=== PATIENT | male | born 1975 | race Caucasian/White ===

== ENCOUNTER 2024-03-18 09:26 | Emergency (ER) | payer OTHER, SELFPAY ==
--- NOTE | ~2024-03-18 | XR_ITS ---
XR foot RT min 3V Ordering provider: Antony Guadarrama APRN History: . FALL OFF LADDER. RT HEEL PAIN . Comparison: None. FINDINGS: BONES: No acute fracture or dislocation. Calcaneal spur. JOINT SPACES: Normal. No tarsal coalition. SOFT TISSUES: Normal. IMPRESSION: No acute osseous abnormality of the right foot. Reviewed, dictated and finalized at location A.
--- NOTE | ~2024-03-18 | XR_ITS ---
XR ankle RT min 3V Ordering provider: Antony Guadarrama APRN History: . right ankle pain s/p fall OFF LADDER LAST NIGHT . Comparison: None. FINDINGS: BONES: No acute fracture or dislocation. Small well-corticated bone is seen adjacent to the medial ma lleolus most likely old fracture or nonhealed apophysis. JOINT SPACES: Normal. SOFT TISSUES: Normal. IMPRESSION: No definite acute osseous abnormality of the right ankle. Small well-corticated bone is seen adjacent to the medial malleolus most likely old fracture or nonh ealed apophysis. Reviewed, dictated and finalized at location A. IMPRESSION: No definite acute osseous abnormality of the right ankle. Small well-corticated bone is seen adjacent to the medial malleolus most likel y old fracture or nonhealed apophysis.
[2024-03-18 09:30] VITALS: BP 147/96; PULSE 95; RESP 16; TEMP 36.4; O2SAT 98
--- NOTE | 2024-03-18 09:37 | ED.LOWEXIN ---
HPI - Extremity Injury (Lower) General Chief Complaint: Extremity Injury, Lower Stated Complaint: fall from ladder, right heel pain Time Seen by Provider: 03/18/24 09:28 History of Present Illness HPI Narrative: 48-year-old male with a history of bilateral knee replacements presents to the emergency room for evaluation of right heel pain. Patient states he was on a 6 ft ladder yesterday where he abruptly jumped off attempting to escape being stung by a hornet. States that when he struck the ground, majority of his weight landed on his right heel. Denies any hip or lower back pain. Denies any other injuries. States is able to the bear weight with the assistance of a cane. Related Data Home Medications Medication Instructions Recorded Confirmed anastrozole 1 mg tablet mg 03/18/24 03/18/24 celecoxib 200 mg capsule mg 03/18/24 clonazepam 1 mg tablet mg 03/18/24 pregabalin 150 mg capsule mg 03/18/24 quetiapine 100 mg tablet mg 03/18/24 sumatriptan succinate 100 mg tablet mg PO 03/18/24 testosterone cypionate 200 mg/mL mg 03/18/24 intramuscular oil tramadol 200 mg tablet,extended mg PO 03/18/24 release 24 hr Allergies Allergy/AdvReac Type Severity Reaction Status Date / Time amoxicillin Allergy Mild Verified 03/24/10 11:07 Review of Systems Review of Systems: ROS unremarkable except for noted in HPI Exam Narrative: GENERAL: Well-appearing, well-nourished, no physical limitations, and in no acute distress. HEAD: Normocephalic, atraumatic. EYES: Conjunctivae normal, PERRLA and EOMI. NECK: Supple. CHEST: Clear to auscultation. No respiratory distress. No wheezes rales or rhonchi. HEART: Regular rate and rhythm. No murmur heard. Normal peripheral pulses. BACK: No cervical/thoracic/lumbar tenderness, step-offs, bony abnormality; FROM EXTREMITIES: right foot: +TTP to plantar surface of heel. No STS or ecchymosis. No obvious bony abnormality SKIN: Warm, dry, no rash. No noted wounds NEURO: No focal deficits. Alert and oriented x3. MAEW. CN's II-XI intact bilaterally, antalgic gait PSYCH: Cooperative. Normal mood and affect. MDM - Extremity Injury (Lower) Imaging Data Radiologist's impression: Impressions Foot X-Ray 03/18/24 09:49 IMPRESSION: No acute osseous abnormality of the right foot. Ankle X-Ray 03/18/24 09:51 IMPRESSION: No definite acute osseous abnormality of the right ankle. Small well-corticated bone is seen adjacent to the medial malleolus most likely old fracture or nonhealed apophysis. Discharge Plan Discharge Clinical Impression: Contusion of right heel Patient Disposition: Home, Self-Care Condition: Stable Instructions: Antibiotic Form Prescriptions: No Action celecoxib 200 mg capsule anastrozole 1 mg tablet sumatriptan succinate 100 mg tablet PO clonazepam 1 mg tablet quetiapine 100 mg tablet testosterone cypionate 200 mg/mL oil pregabalin 150 mg capsule tramadol 200 mg tablet extended release 24 hr PO Follow-up/Referrals: PHYSICIAN NOT ON STAFF,NONSTAFF [Non-Staff] - Time of Disposition: 10:01
--- NOTE | 2024-03-18 11:12 | PC.NURSE ---
went in to dc the pt. pt very upset, using abusive and derogatory language because of lack of walking boot. pt stormed out after efforts to deescalate him became futile
== END 2024-03-18 11:15 | disposition home or self-care (01) ==
PROVIDERS: Emergency Provider Nurse Practitioner Family
DX: S90.31XA Contusion of right foot, initial encounter (principal); Z79.899 Other long term (current) drug therapy; W11.XXXA Fall on and from ladder, initial encounter
CPT/HCPCS: 73610; 73630; 99283